=== PATIENT | male | born 1990 | race Caucasian/White ===

== ENCOUNTER 2019-03-05 20:58 | Emergency (ER) | payer MEDICAID, OTHER ==
[~2019-03-05] VITALS: Ht 177.8 cm; Wt 123.6 kg
[2019-03-05 21:01] VITALS: BP 145/92
[2019-03-05] MEDS ORDERED: sulfamethoxazole/trimethoprim DS (800/160mg) tablet PO ONE (21:10)
[2019-03-05] MEDS ORDERED: acetaminophen 325mg tablet PO ONE (21:10)
[2019-03-05] MEDS ORDERED: cephalexin 250mg capsule PO ONE (21:10)
[2019-03-05] MEDS ORDERED: CEPH-572 PO (21:18)
[2019-03-05] MEDS ORDERED: SULF1TAB49 PO (21:18)
== END 2019-03-05 21:42 | disposition home or self-care (01) ==
LOC: ER 20:58
DX: L02.11 Cutaneous abscess of neck (principal); F10.99 Alcohol use, unspecified with unspecified alcohol-induced disorder; Z98.890 Other specified postprocedural states; Z88.5 Allergy status to narcotic agent; Z79.899 Other long term (current) drug therapy; Z59.0 Homelessness; Y90.9 Presence of alcohol in blood, level not specified
CPT/HCPCS: 99284